=== PATIENT | male | born 1965 | race African-American/Black ===

== ENCOUNTER 2017-01-14 20:53 | Inpatient (IN) | payer OTHER ==
[~2017-01-14] VITALS: Ht 188 cm; Wt 110.0 kg
[~2017-01-14 20:53] MED LIST: DARV PO; Z.0.NO CURRENT MEDS
[2017-01-14 21:00] VITALS: BP 214/110; PULSE 98; RESP 18; TEMP 97.8; O2SAT 98
[2017-01-14] MEDS ORDERED: SODIUM CHLOR 0.9% 1000 ML INJ 1,000 ML IV SCH (21:08)
[2017-01-14] MEDS ORDERED: ceFAZolin 2 GM PREMIX 50 ML IV ONE (21:15)
[2017-01-14] MEDS ORDERED: DIPHTH/TETANUS/ACEL PERTUSSIS (BOOSTER) 0.5 ML VIAL/PFS IM ONE (21:15)
[2017-01-14] MEDS ORDERED: MORPHINE SULFATE 4 MG/ML INJ IV ONE (21:15)
[2017-01-14] MEDS ORDERED: ONDANSETRON HCL 4 MG/2 ML VIAL IVP ONE (21:15)
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
[2017-01-14 21:46] LABS: I-STAT POTASSIUM 3.3 MMOL/L (3.5-4.9)
[2017-01-14 21:51] LABS: BASOPHIL # 0.1 TH/MM3 (0-0.2); BASOPHIL % 0.6 % (0.0-2.0); EOSINOPHIL # 0.3 TH/MM3 (0-0.4); EOSINOPHIL % 2.1 % (0.0-4.0); HEMATOCRIT 41.4 % (39.0-51.0); HEMO FLAGS DIFF FINAL; LYMPH % 38.3 % (9.0-44.0); MEAN CELL VOLUME 87.2 FL (80.0-100.0); MEAN CORPUSCULAR HGB CONC 33.2 % (32.0-36.0); MONO % 6.1 % (0.0-8.0); NEUT % 52.9 % (16.0-70.0); PLATELET COUNT 235 TH/MM3 (150-450); RED BLOOD COUNT 4.75 MIL/MM3 (4.50-5.90); RED CELL DISTRIBUTION WIDTH 12.5 % (11.6-17.2); WHITE BLOOD COUNT 13.2 TH/MM3 (4.0-11.0)
[2017-01-14 22:07] LABS: INTERNATIONAL NORMALIZED RATIO 0.9 RATIO; PROTHROMBIN TIME - PATIENT 10.3 SEC (9.8-11.6)
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
[2017-01-14 22:50] VITALS: BP 169/84; PULSE 87; RESP 18; O2SAT 98
[2017-01-14] MEDS ORDERED: LABETALOL HCL 100 MG/20 ML VIAL IV PUSH ONE (23:00)
[2017-01-14] MEDS ORDERED: ONDANSETRON HCL 4 MG/2 ML VIAL IV PUSH ONE (23:30)
[2017-01-14] MEDS ORDERED: ACETAMINOPHEN/HYDROcodone 325 MG/7.5 MG TAB PO PRN (23:30)
[2017-01-14] MEDS ORDERED: HYDROmorphone HCL PF 1 MG/ML VIAL IV PUSH ONE (23:30)
[2017-01-14] MEDS ORDERED: POTASSIUM CHLORIDE 20 MEQ CONTROLLED RELEASE TAB PO ONE (23:45)
[2017-01-15] VITALS (8 sets, daily range): BP systolic 172–221; BP diastolic 86–115; PULSE 75–84; RESP 16–22; TEMP 97.8–98.4; O2SAT 95–99
[2017-01-15] MEDS: SODIUM CHLOR 0.9% 1000 ML INJ 1,000 ML IV SCH ×2 (00:31→11:40)
[2017-01-15] MEDS: cloNIDine HCL 0.1 MG TAB PO PRN ×2 (00:32→05:00)
[2017-01-15 01:31] LABS: BLOOD, URINE SMALL (NEG); COMMENT (UR) CULT NOT INDICATED; CULTURE IF INDICATED CULT NOT INDICATED; GLUCOSE,URINE TRACE mg/dL (NEG); HYALINE CAST, URINE 4 /lpf (RARE); KETONE, URINE NEG (NEG); MUCUS URINE FEW /lpf (OCC); NITRITE,URINE NEG (NEG); SQUAMOUS EPITHELIAL CELL URINE <1 /hpf (0-5); URINE COLOR LIGHT-YELLOW (YELLW/STRAW)
[2017-01-15] MEDS: HYDROmorphone HCL PF 1 MG/ML VIAL IV PUSH PRN ×3 (05:00→20:39)
[2017-01-15] MEDS: ONDANSETRON HCL 4 MG/2 ML VIAL IV PUSH PRN ×2 (06:35→10:47)
[2017-01-15] MEDS ORDERED: CYCLOBENZAPRINE HCL 10 MG TAB PO PRN (10:30)
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
[2017-01-15] MEDS ORDERED: CYCLOBENZAPRINE HCL 10 MG TAB PO ONE ×2 (11:00→14:00)
[2017-01-15] MEDS ORDERED: AMLO10TA2 PO (11:04)
[2017-01-15] MEDS ORDERED: CLON0.1T PO (11:04)
[2017-01-15] MEDS: BACITRACIN TOP OINT 15 GM TUBE TOPICAL SCH (12:45)
[2017-01-15] MEDS: cloNIDine HCL 0.2 MG TAB PO PRN (15:39)
[2017-01-15] MEDS ORDERED: NIFEdipine 30 MG SUSTAINED RELEASE TAB PO SCH (16:00)
[2017-01-15 18:09] LABS: BICARBONATE 24.2 MEQ/L (21.0-32.0); POTASSIUM 3.9 MEQ/L (3.5-5.1)
[2017-01-15] MEDS: NIFEdipine 30 MG SUSTAINED RELEASE TAB PO SCH (20:38)
[2017-01-16 00:32] VITALS: BP 181/99; PULSE 112; RESP 21; TEMP 98; O2SAT 96
[2017-01-16] MEDS: SODIUM CHLOR 0.9% 1000 ML INJ 1,000 ML IV SCH (00:52)
[2017-01-16] MEDS: BACITRACIN TOP OINT 15 GM TUBE TOPICAL SCH ×3 (00:52→22:14)
[2017-01-16] MEDS: ENALAPRILAT 1.25 MG/ML VIAL IV PUSH PRN (00:54)
[2017-01-16] MEDS: HYDROmorphone HCL PF 1 MG/ML VIAL IV PUSH PRN ×3 (00:55→15:31)
[2017-01-16 04:25] VITALS: BP 142/80; PULSE 78; RESP 18; TEMP 98.4; O2SAT 95
[2017-01-16] MEDS: oxyCODONE/ACETAMINOPHEN 7.5 MG/325 MG TAB PO PRN ×3 (04:27→22:12)
[2017-01-16] MEDS: CYCLOBENZAPRINE HCL 10 MG TAB PO PRN (04:27)
[2017-01-16 06:15] LABS: BICARBONATE 26.2 MEQ/L (21.0-32.0); POTASSIUM 3.8 MEQ/L (3.5-5.1)
[2017-01-16 08:02] VITALS: BP 134/80; PULSE 78; RESP 20; TEMP 98.1; O2SAT 96
[2017-01-16] MEDS: NIFEdipine 30 MG SUSTAINED RELEASE TAB PO SCH ×2 (08:53→22:11)
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
[2017-01-16 12:48] VITALS: BP 163/90; PULSE 82; RESP 23; TEMP 98.3; O2SAT 96
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
--- NOTE | 2017-01-16 13:52 | RADRPT ---
EXAM DATE/TIME: 01/16/2017 13:23 [facility] COMPARISON: No previous studies available for comparison. INDICATIONS : Left knee pain. MEDICAL HISTORY : None. SURGICAL HISTORY : None. ENCOUNTER: Initial ACUITY: 2 days PAIN SCORE: 7/10 LOCATION: Left knee FINDINGS: 2 views of the left knee reveal acute nondisplaced fracture involving the proximal fibular metaphysis . The remaining knee is intact. No joint effusion. Soft tissues are unremarkable. CONCLUSION: Proximal fibular fracture. Jakub Elam Jr., MD on January 16, 2017 at 13:48 Board Certified Radiologist. This report was verified electronically.
[2017-01-16 15:58] VITALS: BP 169/88; PULSE 86; RESP 16; TEMP 98.7; O2SAT 95
[2017-01-16 20:01] VITALS: BP 174/90; PULSE 90; RESP 18; TEMP 98.4; O2SAT 97
[2017-01-16] MEDS: cloNIDine HCL 0.2 MG TAB PO PRN (22:11)
[2017-01-17] VITALS (7 sets, daily range): BP systolic 138–173; BP diastolic 77–89; PULSE 83–92; RESP 16–18; TEMP 97.7–98.3; O2SAT 96–97
[2017-01-17] MEDS: oxyCODONE/ACETAMINOPHEN 7.5 MG/325 MG TAB PO PRN ×3 (08:24→20:44)
[2017-01-17] MEDS: SODIUM CHLORIDE 0.9% FLUSH 10 ML FLUSH IVF PRN (08:24)
[2017-01-17] MEDS: NIFEdipine 60 MG SUSTAINED RELEASE TAB PO SCH (08:24)
[2017-01-17] MEDS: CYCLOBENZAPRINE HCL 10 MG TAB PO PRN ×2 (08:24→20:43)
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
[2017-01-17] MEDS: BACITRACIN TOP OINT 15 GM TUBE TOPICAL SCH ×2 (10:23→20:40)
[2017-01-17] MEDS: HYDROmorphone HCL PF 1 MG/ML VIAL IV PUSH PRN (11:31)
--- NOTE | 2017-01-17 16:23 | RADRPT ---
EXAM DATE/TIME: 01/17/2017 15:47 [facility] COMPARISON: No previous studies available for comparison. INDICATIONS : Left leg swelling and pain. MEDICAL HISTORY : Hypertension. Chronic kidney disease. Head injury. SURGICAL HISTORY : Right ankle ORIF. ENCOUNTER: Initial ACUITY: 1 day PAIN SCORE: 7/10 LOCATION: Left leg. TECHNIQUE: Venous ultrasound of the leg was performed from the inguinal ligament to the proximal calf. Real-lou e, color Doppler and spectral tracing, compression and augmentation techniques were used. FINDINGS: There is normal compressibility of the deep venous system from the inguinal region to the proximal ca lf. No echogenic clot is seen in the lumen of the common femoral, femoral, popliteal, and posterior tibial veins. There is a normal response of the venous system to proximal and distal augmentation an d respiration. CONCLUSION: 1. No DVT identified. 2. The exam does demonstrate some mildly enlarged lymph nodes within the groin the largest measures 3 .3 x 0.9 x 2.2 centimeters. Dinesh Land MD on January 17, 2017 at 16:20 Board Certified Radiologist. This report was verified electronically.
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
[2017-01-17] MEDS: HEPARIN SODIUM - SQ 10,000 UNITS/ML VIAL SQ SCH (20:42)
[2017-01-17] MEDS: NIFEdipine 30 MG SUSTAINED RELEASE TAB PO SCH (20:43)
[2017-01-18 00:16] VITALS: BP 155/95; PULSE 85; RESP 20; TEMP 98.6; O2SAT 97
[2017-01-18 03:47] VITALS: BP 190/93; PULSE 86; RESP 18; TEMP 98; O2SAT 96
[2017-01-18] MEDS: SODIUM CHLORIDE 0.9% FLUSH 10 ML FLUSH IVF PRN (05:07)
[2017-01-18] MEDS: oxyCODONE/ACETAMINOPHEN 7.5 MG/325 MG TAB PO PRN ×4 (05:07→19:55)
[2017-01-18] MEDS: ENALAPRILAT 1.25 MG/ML VIAL IV PUSH PRN ×2 (05:07→19:45)
[2017-01-18 08:28] VITALS: BP 151/106; PULSE 89; RESP 18; TEMP 98; O2SAT 97
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
[2017-01-18] MEDS: BACITRACIN TOP OINT 15 GM TUBE TOPICAL SCH ×3 (09:28→21:00)
[2017-01-18] MEDS: HEPARIN SODIUM - SQ 10,000 UNITS/ML VIAL SQ SCH ×2 (09:28→20:36)
[2017-01-18] MEDS: CYCLOBENZAPRINE HCL 10 MG TAB PO PRN (09:29)
[2017-01-18] MEDS: NIFEdipine 60 MG SUSTAINED RELEASE TAB PO SCH (09:29)
[2017-01-18 10:29] LABS: AUTOMATED NEUTROPHIL # 4.4 TH/MM3 (1.8-7.7); BASOPHIL # 0.1 TH/MM3 (0-0.2); EOSINOPHIL # 0.2 TH/MM3 (0-0.4); EOSINOPHIL % 3.4 % (0.0-4.0); HEMATOCRIT 37.6 % (39.0-51.0); LYMPH % 24.4 % (9.0-44.0); LYMPHOCYTE # 1.7 TH/MM3 (1.0-4.8); MEAN CELL VOLUME 87.5 FL (80.0-100.0); MEAN CORPUSCULAR HEMOGLOBIN 29.1 PG (27.0-34.0); MEAN CORPUSCULAR HGB CONC 33.3 % (32.0-36.0); MONO % 7.8 % (0.0-8.0); NEUT % 63.4 % (16.0-70.0); PLATELET COUNT 221 TH/MM3 (150-450); RED BLOOD COUNT 4.29 MIL/MM3 (4.50-5.90); RED CELL DISTRIBUTION WIDTH 12.5 % (11.6-17.2)
[2017-01-18 10:30] LABS: HEMO FLAGS DIFF FINAL
--- NOTE | 2017-01-18 10:54 | RADRPT ---
EXAM DATE/TIME: 01/18/2017 09:53 [facility] COMPARISON: FOOT LEFT COMPLETE ([id number]), January 17, 2017, 16:00. INDICATIONS : Left foot fractures, ankle and foot pain RADIATION DOSE: 7.29 CTDIvol (mGy) MEDICAL HISTORY : Hypertension. SURGICAL HISTORY : Left ankle surgery. ENCOUNTER: Initial ACUITY: 1 week PAIN SCALE: 5/10 LOCATION: Left foot and ankle TECHNIQUE: Volumetric scanning of the foot was performed. Using automated exposure control and adjustment of th e mA and/or kV according to patient size, radiation dose was kept as low as reasonably achievable to obtain optimal diagnostic quality images. FINDINGS: Oblique coronally oriented fracture is seen of the anterior aspect of the distal tibia and intra-rc cular at the plafond. No significant displacement. The tibial fracture fragment measures approximatel y 8 x 23 x 22 mm in size. Very comminuted acute fracture seen of the lateral process of the talus, for example series 300 image 104. There is upper 3 mm of separation. The fracture is intra-articular involving the posterior face t of the subtalar joint but without significant step-off or incongruity. The subchondral plate is con siderably fragmented/comminuted. There is an approximate 10 mm triangular-shaped fracture fragment of the sustentaculum mimi region me dially of the calcaneus and focally intra-articular involving the middle facet of the subtalar joint with about 1 mm of step-off. Numerous small fracture fragments involve the second, third and fourth tarsometatarsal joints. A larg er fracture fragment is seen off of the base of the second metatarsal related to an oblique fracture and has intra-articular involvement of the second tarsometatarsal joint and also between the second a nd third metatarsal bases. There is up to 5 mm of separation. No Lisfranc subluxation demonstrated. There is a nondisplaced fracture along the medial aspect of the lateral cuneiform, series 2 image 37. This is intra-articular at the lateral cuneiform/cuboid joint but without significant step-off or in congruity. There is an oblique fracture in the neck region of the third metatarsal with approximately one shaft width of medial displacement. The There is dorsal and lateral dislocation of the fourth metatarsophalangeal joint. There is dorsal dislocation and mild lateral subluxation of the fifth metatarsophalangeal joint. CONCLUSION: Multifocal fracturing of the left foot and visualized portions of the left ankle as above. Yaya Calle MD on January 18, 2017 at 10:30 Board Certified Radiologist. This report was verified electronically.
[2017-01-18 10:57] LABS: BICARBONATE 26.6 MEQ/L (21.0-32.0); POTASSIUM 3.9 MEQ/L (3.5-5.1)
[2017-01-18] MEDS: DOCUSATE SODIUM 100 MG CAP PO SCH ×2 (11:01→20:36)
[2017-01-18 11:30] VITALS: BP 149/90; PULSE 83; RESP 18; TEMP 97.9; O2SAT 95
[2017-01-18] MEDS ORDERED: PROPOFOL 200 MG/20 ML AMP IV ONE (12:00)
[2017-01-18] MEDS ORDERED: NEOSTIGMINE 3 MG/3 ML SYR IV ONE (12:00)
[2017-01-18] MEDS ORDERED: ONDANSETRON HCL 4 MG/2 ML VIAL IV PUSH ONE (12:00)
[2017-01-18] MEDS ORDERED: LACTATED RINGER'S 1000 ML INJ 1,000 ML IV ONE (12:00)
[2017-01-18] MEDS ORDERED: GENTAMICIN SULFATE 80 MG/2 ML VIAL ONE (14:13)
[2017-01-18] MEDS ORDERED: BUPIVACAINE HCL PF 0.25% 30 ML VIAL ONE (14:13)
[2017-01-18] MEDS ORDERED: ceFAZolin INJ 1,000 MG VIAL ONE (14:13)
[2017-01-18] MEDS ORDERED: LIDOCAINE HCL 2% 50 ML VIAL ONE (15:13)
[2017-01-18 15:52] VITALS: BP 160/97; PULSE 83; RESP 18; TEMP 97.7; O2SAT 97
[2017-01-18] MEDS ORDERED: ACETAMINOPHEN 1000 MG/100 ML VIAL IV ONE (17:09)
[2017-01-18] MEDS ORDERED: ceFAZolin INJ 1,000 MG VIAL IV ONE (17:32)
[2017-01-18] MEDS ORDERED: *morphine SULFATE 8 MG/ML PERIprocedure ONLY ONE ×2 (19:15→19:32)
[2017-01-18] MEDS ORDERED: fentaNYL CITRATE 250 MCG/5 ML AMP ONE (19:18)
[2017-01-18] MEDS ORDERED: *HYDROmorphone PF 1 MG VIAL PERIprocedural Use ONLY ONE (19:39)
[2017-01-18] MEDS ORDERED: DO NOT ADM ANY ANTICOAGULANT DRUGS PRN (19:45)
[2017-01-18] MEDS: NIFEdipine 30 MG SUSTAINED RELEASE TAB PO SCH (20:36)
[2017-01-18 20:43] VITALS: BP 155/77; PULSE 84; RESP 18; TEMP 97.4; O2SAT 92
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
[2017-01-18] MEDS: HYDROmorphone HCL PF 1 MG/ML VIAL IV PUSH PRN (22:17)
[2017-01-19] VITALS (7 sets, daily range): BP systolic 140–158; BP diastolic 79–91; PULSE 79–102; RESP 16–20; TEMP 96–98.9; O2SAT 93–96
[2017-01-19] MEDS: HYDROmorphone HCL PF 1 MG/ML VIAL IV PUSH PRN ×4 (01:44→12:49)
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
[2017-01-19] MEDS ORDERED: MAGNESIUM HYDROXIDE SUSP 30 ML CUP PO PRN (07:15)
[2017-01-19] MEDS ORDERED: BISACODYL EC 5 MG TABEC PO PRN (07:15)
--- NOTE | 2017-01-19 08:15 | RADRPT ---
EXAM DATE/TIME: 01/19/2017 07:32 [facility] COMPARISON: CT ABDOMEN & PELVIS W/O CONTRAST, January 14, 2017, 21:58. INDICATIONS : No bowel movement for 4 days. MEDICAL HISTORY : None. SURGICAL HISTORY : None. ENCOUNTER: Initial ACUITY: 4 - 6 days PAIN SCORE: 0/10 LOCATION: Bilateral abdomen. FINDINGS: 2 supine frontal views of the abdomen demonstrate air within bowel in a nonobstructive pattern. There is a 5 mm metallic density overlying the right colon. This structure was previously in the cecum. No organomegaly or abnormal calcifications are seen. Visualized lung bases are clear. No acute osseous abnormality is seen. CONCLUSION: 1. No acute abdominal abnormality is identified. There are no findings to indicate bowel obstruction. 2. Stable nonspecific 5 mm metallic density in the right colon. Yaya Hassan MD on January 19, 2017 at 8:11 Board Certified Radiologist. This report was verified electronically.
--- NOTE | 2017-01-19 08:48 | RADRPT ---
EXAM DATE/TIME: 01/18/2017 18:33 [facility] COMPARISON: CT FOOT LEFT W/O CONTRAST, January 18, 2017, 9:53. INDICATIONS : Post reduction, pinning left foot MEDICAL HISTORY : None. SURGICAL HISTORY : None. ENCOUNTER: Subsequent ACUITY: 3 days PAIN SCORE: Non-responsive. LOCATION: Left Foot FINDINGS: 5 fluoroscopic images were taken in the operating room during a procedure and document K wires lorena sing the distal third, fourth, and fifth digits traversing the metatarsophalangeal joint region. Ther e is also a single K wire coursing through the medial cuneiform and terminating in the second metatar jess. 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 Fracture is visualized at the distal third metat arsal. CONCLUSION: Fluoroscopic images obtained during left foot ORIF with K wire placement. Yaya Hassan MD on January 19, 2017 at 8:44 Board Certified Radiologist. This report was verified electronically.
[2017-01-19] MEDS: NIFEdipine 60 MG SUSTAINED RELEASE TAB PO SCH (09:16)
[2017-01-19] MEDS: DOCUSATE SODIUM 100 MG CAP PO SCH ×2 (09:16→21:13)
[2017-01-19] MEDS: HEPARIN SODIUM - SQ 10,000 UNITS/ML VIAL SQ SCH ×2 (09:17→21:14)
[2017-01-19] MEDS: BACITRACIN TOP OINT 15 GM TUBE TOPICAL SCH ×2 (09:17→21:14)
--- NOTE | 2017-01-19 15:09 | HHI.FF ---
Face to Face Verification Diagnosis: (1) Foot fracture, left (2) Fibula fracture (3) CKD (chronic kidney disease) stage 3, GFR 30-59 ml/min (4) Abrasions of multiple sites (5) HTN (hypertension) Home Health Nursing Order: Medical education Signs/symptoms of disease process Medication education-adverse effect Wound care and dressing changes Nursing assessment with vital signs Instructions: clean abrasions over scalp/body/extremities with saline and apply bacitracin daily I have seen patient Jv Aiken on 01/19/17. My clinical findings support the need for the requested home health care services because: Limited ability to care for self I certify that my clinical findings support that this patient is homebound because: Unsteady gait/balance Wilfredo Bailey MD January 19, 2017 15:09
[2017-01-19] MEDS ORDERED: WALKER WHEELS/F1 MIS (15:10)
[2017-01-19] MEDS: oxyCODONE/ACETAMINOPHEN 7.5 MG/325 MG TAB PO PRN ×2 (16:29→21:13)
[2017-01-19] MEDS: SODIUM CHLORIDE 0.9% FLUSH 10 ML FLUSH IVF PRN (16:29)
[2017-01-19] MEDS: NIFEdipine 30 MG SUSTAINED RELEASE TAB PO SCH (21:13)
[2017-01-20] VITALS: BP 168/77; PULSE 102; RESP 18; TEMP 98.1; O2SAT 93
[2017-01-20] MEDS: oxyCODONE/ACETAMINOPHEN 7.5 MG/325 MG TAB PO PRN ×2 (01:53→05:58)
[2017-01-20 04:00] VITALS: BP 144/75; PULSE 92; RESP 20; TEMP 98.8; O2SAT 95
[2017-01-20 08:00] VITALS: BP 184/100; PULSE 97; RESP 19; TEMP 97.3; O2SAT 97
[2017-01-20] MEDS: BACITRACIN TOP OINT 15 GM TUBE TOPICAL SCH (09:00)
[2017-01-20] MEDS: NIFEdipine 60 MG SUSTAINED RELEASE TAB PO SCH (09:29)
[2017-01-20] MEDS: cloNIDine HCL 0.2 MG TAB PO PRN (09:29)
[2017-01-20] MEDS: DOCUSATE SODIUM 100 MG CAP PO SCH (09:30)
[2017-01-20] MEDS: HEPARIN SODIUM - SQ 10,000 UNITS/ML VIAL SQ SCH (09:30)
[2017-01-20 10:26] VITALS: BP 173/94; PULSE 86; RESP 19; TEMP 96.7; O2SAT 96
[2017-01-20 10:30] VITALS: BP 173/94; PULSE 86; RESP 19; TEMP 96.7; O2SAT 96
[2017-01-20 12:00] VITALS: BP 176/94; PULSE 86; RESP 19; TEMP 97.7; O2SAT 95
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
[2017-01-20] MEDS ORDERED: NIFE30TA8 PO (12:41)
[2017-01-20] MEDS ORDERED: DOCU1CAP39 PO (12:41)
[2017-01-20] MEDS ORDERED: PERC5TAB12 PO (12:41)
[2017-01-20] MEDS ORDERED: BACI500O2 TOPICAL (12:41)
--- NOTE | 2017-01-20 14:59 | PD.POD ---
Subjective Podiatric Problems s/p Left ORIF 3-5 digitd. s/p Left percutaneous pinning of Cirilo DOS 01/18/17 Doing well at bedside Past Med/Surg/Social History Social History Smoking Status: Never Smoker Objective Vital Signs Vital Signs Date Time Temp Pulse Resp B/P Pulse Ox O2 Delivery O2 Flow Rate FiO2 01/20/17 12:00 97.7 86 19 176/94 95 01/20/17 10:30 96.7 86 19 173/94 96 01/20/17 10:26 96.7 86 19 173/94 96 01/20/17 08:00 97.3 97 19 184/100 97 01/20/17 04:00 98.8 92 20 144/75 95 01/20/17 02:53 18 01/20/17 00:00 98.1 102 18 168/77 93 01/19/17 20:28 96 01/19/17 20:00 98.8 97 18 155/84 94 01/19/17 16:00 98.9 102 18 140/90 95 Coded Allergies: No Known Allergies (Verified , 01/14/17) Other Results Last Impressions Abdomen X-Ray 01/19/17 0000 Signed Impressions: Service Date/Time: Thursday, January 19, 2017 07:32 - CONCLUSION: 1. No acute abdominal abnormality is identified. There are no findings to indicate bowel obstruction. 2. Stable nonspecific 5 mm metallic density in the right colon. Yaya Hassan MD Lower Extremity CT 01/18/17 0000 Signed Impressions: Service Date/Time: January 09:53 - CONCLUSION: Multifocal fracturing of the left foot and visualized portions of the left ankle as above. Yaya Calle MD Foot X-Ray 01/18/17 0000 Signed Impressions: Service Date/Time: January 18:33 - CONCLUSION: Fluoroscopic images obtained during left foot ORIF with K wire placement. Yaya Hassan MD Lower Extremity Ultrasound 01/17/17 0000 Signed Impressions: Service Date/Time: Tuesday, January 17, 2017 15:47 - CONCLUSION: 1. No DVT identified. 2. The exam does demonstrate some mildly enlarged lymph nodes within the groin the largest measures 3.3 x 0.9 x 2.2 centimeters. Dinesh Land MD Knee X-Ray 01/16/17 0000 Signed Impressions: Service Date/Time: Monday, January 16, 2017 13:23 - CONCLUSION: Proximal fibular fracture. Jakub Elam Jr., MD Ankle X-Ray 01/14/172112 Signed Impressions: Service Date/Time: Saturday, January 14, 2017 21:38 - CONCLUSION: Unremarkable study. Jihan Liang MD Tibia/Fibula X-Ray 01/14/172107 Signed Impressions: Service Date/Time: Saturday, January 14, 2017 21:38 - CONCLUSION: Unremarkable study. Jihan Liang MD Pelvis X-Ray 01/14/172107 Signed Impressions: Service Date/Time: Saturday, January 14, 2017 21:34 - CONCLUSION: Unremarkable study. Jihan Liang MD Head CT 01/14/172107 Signed Impressions: Service Date/Time: Saturday, January 14, 2017 21:54 - CONCLUSION: Scalp swelling. Jihan Liang MD Chest X-Ray 01/14/172107 Signed Impressions: Service Date/Time: Saturday, January 14, 2017 21:53 - CONCLUSION: No acute cardiopulmonary disease. Jihan Liang MD Chest CT 01/14/172107 Signed Impressions: Service Date/Time: Saturday, January 14, 2017 21:58 - CONCLUSION: Unremarkable study. Jihan Liang MD Cervical Spine CT 01/14/172107 Signed Impressions: Service Date/Time: Saturday, January 14, 2017 21:54 - CONCLUSION: Degenerative spondylosis without any significant compromise to the thecal sac or the exiting nerve roots. Jihan Liang MD Abdomen/Pelvis CT 01/14/172107 Signed Impressions: Service Date/Time: Saturday, January 14, 2017 21:58 - CONCLUSION: Essentially unremarkable study except for scattered diverticuli. Jihan Liang MD Exam-Podiatry Musculoskeletal Exam Details LLE Intact sensation 1-5 L Intact dressing and no strikethrough. No calf pain. Assessment & Plan Diagnosis: (1) Left ankle injury Status: Acute (2) Foot fracture, left Status: Acute A/P NWB L x 6-10 weeks. F/U with Dr Rosa within 1 week of d/c OK to d/c per Podiatry. Problem Qualifiers (1) Left ankle injury: Qualified Code: S99.912A - Left ankle injury, initial encounter Hyun Rosa DPM January 20, 2017 14:59
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
== END 2017-01-20 13:56 | disposition home health service (06) | DRG 505 ==
LOC: NEPE 20:53 → NEDA 23:16 → NEPGCP 01-15 01:07 → OBSVTOIN 01-17 17:12 → N07B 01-18 16:49
PROVIDERS: ADMIT Orthopaedic Surgery Sports Medicine; ATTEND Orthopaedic Surgery Sports Medicine
PROC: 0SSN04Z Reposition Left Metatarsal-Phalangeal Joint with Internal Fixation Device, Open Approach (ICD-10-PCS; 2017-01-18)
PROC: 0SSN04Z Reposition Left Metatarsal-Phalangeal Joint with Internal Fixation Device, Open Approach (ICD-10-PCS; 2017-01-18)
PROC: 0QHM04Z Insertion of Internal Fixation Device into Left Tarsal, Open Approach (ICD-10-PCS; 2017-01-18)
PROC: 0QSP04Z Reposition Left Metatarsal with Internal Fixation Device, Open Approach (ICD-10-PCS; principal; 2017-01-18 17:12)
DX: S92.332A Displaced fracture of third metatarsal bone, left foot, initial encounter for closed fracture (principal); S92.225A Nondisplaced fracture of lateral cuneiform of left foot, initial encounter for closed fracture; S82.832A Other fracture of upper and lower end of left fibula, initial encounter for closed fracture; S00.01XA Abrasion of scalp, initial encounter; S00.81XA Abrasion of other part of head, initial encounter; S00.31XA Abrasion of nose, initial encounter; S50.812A Abrasion of left forearm, initial encounter; S50.811A Abrasion of right forearm, initial encounter; S30.810A Abrasion of lower back and pelvis, initial encounter; V23.4XXA Motorcycle driver injured in collision with car, pick-up truck or van in traffic accident, initial encounter; Y93.9 Activity, unspecified; Y92.410 Unspecified street and highway as the place of occurrence of the external cause; M47.9 Spondylosis, unspecified; I12.9 Hypertensive chronic kidney disease with stage 1 through stage 4 chronic kidney disease, or unspecified chronic kidney disease; N18.3 Chronic kidney disease, stage 3 (moderate)
CPT/HCPCS: 29515; 70450; 71010; 71250; 72125; 72170; 73560; 73590; 73610; 73620; 73630; 73700; 74000; 74176; 76000; 80048; 81001; 82435; 82565; 82947; 84132; 84295; 84520; 85025; 85384; 85610; 85730; 86077; 86850; 86870; 86900; 86901; 86920; 86922; 90471; 90715; 93971; 96374; 96375; E0113; G0378; G8987-GP; G8988-GP; J0131; J0690; J1170; J1580; J1644; J2270; J2405; J2710; J3010; J7030; J7120; L0150; L2114

== ENCOUNTER 2018-01-27 07:27 | Emergency (ER) | payer OTHER ==
[~2018-01-27] VITALS: Ht 185.4 cm; Wt 132.0 kg
[~2018-01-27 07:27] MED LIST changes: +BACI500O2 TOPICAL; +CLON0.1T PO; -DARV PO; +DOCU1CAP39 PO; +NIFE30TA8 PO; +PERC5TAB12 PO; +WALKER WHEELS/F1 MIS; -Z.0.NO CURRENT MEDS
[2018-01-27 07:31] VITALS: BP_SYST 230; BP_SYST 248; BP_DIAS 130; BP_DIAS 132; PULSE 84; RESP 18; TEMP 98.5; O2SAT 99
[2018-01-27] MEDS ORDERED: AMLO10TA2 PO ×2 (07:48→11:24)
[2018-01-27] MEDS ORDERED: cloNIDine HCL 0.1 MG TAB PO ONE (08:00)
[2018-01-27] MEDS ORDERED: NIFEdipine 30 MG SUSTAINED RELEASE TAB PO ONE (08:00)
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
[2018-01-27 09:04] VITALS: BP 213/127; PULSE 77; RESP 22
[2018-01-27] MEDS ORDERED: hydrALAZINE HCL 20 MG/ML VIAL IV PUSH ONE (09:30)
[2018-01-27 11:05] VITALS: BP 174/93
[2018-01-27] MEDS ORDERED: CLON0.2T PO (11:24)
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
== END 2018-01-27 11:53 | disposition home or self-care (01) ==
LOC: NEPE 07:27
DX: S80.12XA Contusion of left lower leg, initial encounter (principal); I10 Essential (primary) hypertension; V89.2XXA Person injured in unspecified motor-vehicle accident, traffic, initial encounter; Z79.899 Other long term (current) drug therapy
CPT/HCPCS: 73552; 73560; 96374; 99284; J0360